=== PATIENT | female | born 1990 | race Caucasian/White ===

== ENCOUNTER 2023-05-06 08:01 | Outpatient (RCR) | payer BC, SELFPAY | END 2023-06-26 14:35 | disposition home or self-care (01) | PROVIDERS: PCP Surgery; Visit Provider Surgery | DX: O26.893 Other specified pregnancy related conditions, third trimester (principal); R10.2 Pelvic and perineal pain; R53.1 Weakness; M54.50 Low back pain, unspecified; Z51.89 Encounter for other specified aftercare | CPT/HCPCS: 97110; 97162 ==

== ENCOUNTER 2023-06-08 16:19 | Outpatient (CLI) | payer BC, SELFPAY ==
[2023-06-08 16:23] VITALS: PULSE 110; O2SAT 100
[2023-06-08 16:28] VITALS: PULSE 100; O2SAT 98
[2023-06-08 16:30] VITALS: BP 128/73; PULSE 106
[2023-06-08 17:02] LABS: Amnisure Rom* Negative
--- NOTE | 2023-06-08 19:36 | PC.OBNST ---
NST Note NST Note Start: 06/08/23 16:25 Freq: ONCE Status: Active Protocol: Document 06/08/23 17:10 Myrna (Rec: 06/08/23 19:36 [email or web address] [id number]) NST Note 3 Para (# of births) 2 EDC 06/21/23 Gestational Age In Weeks & Days 38 Weeks & 1 Days Patient Presented with Complaint(s) of Decreased movement Reactive Yes Appropriate for Gestational Age Yes RN Agueda Jones RN Date 06/08/23 Reactive Yes Appropriate for Gestational Age Yes JORGE Tavarez RN Date 06/08/23 OB NST charge Yes Complete NST Note via Write Note Yes The provider's electronic signature indicates the NST is reactive/appropriate for gestational age. *Note to provider: If an addendum is required, open the patient's chart and click on the note under the Nurse/Allied Health tab.
== END 2023-06-08 17:20 | disposition home or self-care (01) ==
LOC: OB OUT 16:20 → OB 16:20
PROVIDERS: PCP Surgery; Visit Provider Family Medicine
DX: O36.8130 Decreased fetal movements, third trimester, not applicable or unspecified (principal); Z3A.38 38 weeks gestation of pregnancy
CPT/HCPCS: 59025; 84112; 99213

== ENCOUNTER 2023-06-17 07:05 | Inpatient (IN) | payer BC, SELFPAY ==
[2023-06-17] VITALS (8 sets, daily range): BP systolic 99–125; BP diastolic 56–77; PULSE 77–90; RESP 16–18; TEMP 36.8–37; O2SAT 97–98; BMI 32.5
--- NOTE | 2023-06-17 07:21 | PM.OBHPLI ---
OB - H&P: HPI Labor/Induction History of Present Illness Date Seen: 06/17/23 Chief Complaint: The patient is a 32 year old 3 para 2 at 39.3 weeks gestation by 1st trimester ultrasound, who presents with desire for induction. Chief complaint: maternity Narrative: ANGIE PICKETT is a 32 year old female here for induction. has been uncomplicated. Dates are based on 1st trimester ultrasound. She has had 2 uncomplicated vaginal deliveries. She has been feeling a little less movement the last couple days but otherwise is not having any issues. Cramping but no regular contractions. No leaking fluid or bleeding. Otherwise feeling well. History of Present care: good care Ultrasounds: normal 1st trimester US and normal mid trimester US Medical complications: none Labs Blood type: O (+) positive Rubella: nonimmune (Equivocal) RPR/VDLR: nonreactive GBS status: negative HBsAG: negative OB - H&P: Exam Constitutional: Constitutional: no acute distress Detailed Labor and Delivery Exam: Patient Gravid: Yes Dilation (cm): 1 Effacement (%): 50 Cervix position: posterior Consistency: medium Cervical ripeness score: 3 Routine Neurological Exam: Present alert and oriented X3 OB - Problem Based A/P Additional Plan (1) Term : Status: Acute Plan Plan to induce with oral cytotec as desired by patient. Discussed risks/benefits of induction. Proceed per protocol. Anticipate .
[2023-06-17 07:51] LABS: Basophils Absolute Auto 0.03 K/uL (0.00-0.30); Basophils Percent Auto 0.5 % (0.0-3.0); Eosinophils Percent Auto 1.8 % (0.0-7.0); Hematocrit 31.5 % (33.0-51.0); Hemoglobin* 10.6 gm/dL (12.0-16.0); Immature Granulocytes Abs Auto 0.01 K/uL (0.00-0.30); Immature Granulocytes Pct Auto 0.2 %; Mean Corpuscular HGB Conc 34 gm/dL (32-36); Mean Corpuscular Hemoglobin 29 pg (26-34); Mean Corpuscular Volume 85 fL (80-100); Monocytes Percent Auto 10.3 % (0.0-11.0); Neutrophils Absolute Auto 3.34 K/uL (1.7-7.0); Neutrophils Percent Auto 60.2 % (42.0-72.0); Platelet Count* 248 K/uL (140-440); RDW Coefficient of Variation % 12.6 % (11.5-15.5); Red Blood Count 3.71 m/uL (4.00-5.20); White Blood Count* 5.55 K/uL (4.50-11.00)
[2023-06-17 08:01] LABS: Slide Review Reflex No
[2023-06-17] MEDS: miSOPROStoL 25 MCG/0.25 TABLET PO ×5 (08:27→18:46)
--- NOTE | 2023-06-17 22:15 | P.OBPN_ITS ---
Subjective Date Seen: 06/17/23 Narrative: She has gotten 5 doses of cytotec and is not really feeling uncomfortable with contractions. 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 Discussed options with patient. Since induction is elective, can stop and go home. She would like to do this. Wii reevaluate in clinic tomorrow. Return if signs of labor.
== END 2023-06-17 21:05 | disposition home or self-care (01) | DRG 566 ==
PROVIDERS: Admitting Provider Surgery; PCP Surgery; Visit Provider Surgery
DX: O61.0 Failed medical induction of labor (principal); Z3A.39 39 weeks gestation of pregnancy
CPT/HCPCS: 36415; 59200; 85025; 86850; 86900; 86901; A9270

== ENCOUNTER 2023-06-24 17:06 | Inpatient (IN) | payer BC, SELFPAY ==
[2023-06-24 17:09] VITALS: PULSE 102; O2SAT 96
[2023-06-24 17:14] VITALS: RESP 16; TEMP 37.1
[2023-06-24 17:24] VITALS: BMI 33.0
[2023-06-24 17:27] VITALS: BP 119/84; PULSE 92
--- NOTE | 2023-06-24 18:37 | PM.OBHPLI ---
OB - H&P: HPI Labor/Induction History of Present Illness Date Seen: 06/24/23 Chief complaint: Maternity Narrative: Jerrica Neil is a 32 year old 3 para 2 at 40w3d weeks gestation who presents for elective IOL. has been uncomplicated. Elective induction was attempted on 06/17 but no progress was made after 5 doses of oral Cytotec so she went home. Since then, she has had intermittent contractions, but nothing painful or consistent. No vaginal bleeding or LOF. Baby has been active. Denies headache, dizziness, chest pain, SOB, RUQ pain, or vision changes. Meds Home Medications and Allergies Home Medications Medication Instructions Recorded Confirmed Type docosahexaenoic acid PO DAILY 06/24/23 History ferrous sulfate 325 mg (65 mg 325 mg PO DAILY 06/24/23 06/24/23 History iron) tablet (FeroSul) Allergies Allergy/AdvReac Type Severity Reaction Status Date / Time kiwi Allergy Severe Verified 06/24/23 17:25 Penicillins Allergy Unknown rash Verified 06/24/23 17:25 OB - H&P: Exam Physical Exam: Vital signs: Temp Pulse Resp BP Pulse Ox 98.8 F 92 16 119/84 96 06/24/23 17:14 06/24/23 17:27 06/24/23 17:14 06/24/23 17:27 06/24/23 17:09 Constitutional: Constitutional: no acute distress Routine HEENT Exam: Head: Present atraumatic Routine Respiratory Exam: Respiratory: Present CTA bilaterally Routine Cardiovascular Exam: Cardiovascular: RRR Detailed Labor and Delivery Exam: Patient Gravid: Yes Dilation (cm): 2 Effacement (%): 50 Cervix position: posterior Consistency: medium Fetus (Single): Station: -3 Amniotic Membrane Status: intact Heart Rate Baseline: 150 Monitor Accelerations: Present Monitor Decelerations: None Brazer Resistance Variability: Moderate (6-25) OB - Problem Based A/P Additional Plan (1) Term : Status: Acute Plan at 40w3d here for elective IOL. DE Spirits catheter placed at 1830 with 60 cc in each balloon and patient tolerated this well. - routine intrapartum admission orders - plan pitocin per protocol - Morphine & vistaril PRN - anticipate Delivery/Labor/Induction Plan Plan: induction Induction method: Intracervical balloon catheter
[2023-06-24 19:33] VITALS: BP 123/77; PULSE 98; TEMP 37
[2023-06-24 20:35] VITALS: PULSE 97; O2SAT 97
[2023-06-24 23:14] VITALS: PULSE 94; O2SAT 98
[2023-06-25] VITALS (16 sets, daily range): BP systolic 100–141; BP diastolic 56–88; PULSE 72–95; RESP 16–18; TEMP 36.7–37.1; O2SAT 97–98
[2023-06-25] MEDS: miSOPROStoL 25 MCG/0.25 TABLET VAGINAL ×3 (00:59→04:17)
--- NOTE | 2023-06-25 07:13 | P.OBPN_ITS ---
Subjective Date Seen: 06/25/23 Narrative: Here for IOL. 40 10/26 today. Failed oral cytotec induction last week. Cook catheter placed last night and subsequently 2 doses of vaginal cytotec. Cervix has made some change. Starting to feel some contractions. 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 Now is starting to get favorable. Burris score of 7. Plan to transition to pitocin and continue induction. Not in active labor yet but anticipate this soon. Plan to progress toward vaginal delivery.
[2023-06-25 07:48] LABS: Basophils Absolute Auto 0.03 K/uL (0.00-0.30); Basophils Percent Auto 0.4 % (0.0-3.0); Eosinophils Percent Auto 1.3 % (0.0-7.0); Hematocrit 36.3 % (33.0-51.0); Immature Granulocytes Abs Auto 0.01 K/uL (0.00-0.30); Immature Granulocytes Pct Auto 0.1 %; Lymphocytes Absolute Auto 1.71 K/uL (0.90-2.90); Lymphocytes Percent Auto 21.8 % (20-44); Mean Corpuscular HGB Conc 33 gm/dL (32-36); Mean Corpuscular Hemoglobin 28 pg (26-34); Mean Corpuscular Volume 85 fL (80-100); Monocytes Percent Auto 9.8 % (0.0-11.0); Neutrophils Absolute Auto 5.22 K/uL (1.7-7.0); Neutrophils Percent Auto 66.6 % (42.0-72.0); Platelet Count* 269 K/uL (140-440); RDW Coefficient of Variation % 12.8 % (11.5-15.5); Red Blood Count 4.25 m/uL (4.00-5.20); White Blood Count* 7.84 K/uL (4.50-11.00)
[2023-06-25 07:53] LABS: Slide Review Reflex No
[2023-06-25] MEDS: LACTATED RINGERS 1000 ML 1,000 ML 125 ML IV (08:07)
[2023-06-25] MEDS: OXYTOCIN 30 unit/500 ML in NS 30 UNIT/500 ML BAG IVPB (08:07)
--- NOTE | 2023-06-25 11:13 | W.PM.VAGD1_ITS ---
Procedure Procedure Done: [facility] Procedure Details: 1st stage of labor: Patient admitted for elective induction. Cook catheter last night followed by 2 doses of cytotec, then started pitocin this morning. Patient was 2.5 cm after the cook fell out. Changed to 3.5 cm with 2 doses of cytotec. Pitocin was started and increased to 2 units per protocol. There were 2 late decelerations noted as patient progressed and the pitocin was reduced and then stopped. Tracing improved back to category 1 at that time. She was found to be 7.5 cm as she felt more uncomfortable. I rechecked her 15 minutes later at 10:15 as she was feeling more pressure. Cervix was unchanged but there was a bulging bag so AROM was performed with clear fluid returning. She felt a lot more pressure 3 minutes later and was found to be complete. 2nd stage of labor: Patient began pushing at 10:19. She delivered a liveborn female via the OA position at 10:20. No nuchal cord noted. Baby did cry just after delivery. Pitocin started just after delivery. Cord was clamped x2 and cut after 2 minutes. 3rd stage of labor: Placenta delivered spontaneously at 10:27. It was found to be intact with a 3 vessel cord. Bleeding was minimal, 100 cc EBL. No lacerations were noted. Baby and mom set up for routine cares. Intrapartal Events: Labor Induction Delivery augmentation: rupture of membranes and pitocin Delivery monitor: external FHT Route of delivery: Laceration description: None Anesthesia type: Nitrous Disposition: floor Infant Gender: Female presentation: vertex Placental Delivery Description: Spontaneous Cord Description: 3 Vessels
[2023-06-25] MEDS: ACETAMINOPHEN 500 MG TABLET 1000 MG PO ×2 (11:30→22:03)
[2023-06-25] MEDS: IBUPROFEN 600 MG TABLET PO ×2 (13:06→19:37)
[2023-06-25] MEDS: LANOLIN CREAM 1 APPLIC TOPICAL (20:02)
[2023-06-26] VITALS: BP 99/64; PULSE 76; RESP 16; TEMP 36.6; O2SAT 97
[2023-06-26] MEDS: IBUPROFEN 600 MG TABLET PO ×2 (01:19→07:49)
[2023-06-26] MEDS: ACETAMINOPHEN 500 MG TABLET 1000 MG PO ×2 (03:56→09:54)
[2023-06-26 03:58] VITALS: BP 118/77; PULSE 97; RESP 16; TEMP 36.8; O2SAT 97
[2023-06-26 07:44] VITALS: BP 110/70; RESP 16; TEMP 36.8
--- NOTE | 2023-06-26 07:46 | P.DS_ITS ---
DS: Providers Provider Date Seen: 06/26/23 Date of admission: 06/24/23 17:06 Primary care physician: Pato Collado MD Admitting Clinician: Lea Lewis DO Attending Physician on discharge: Lea Lewis DO Date of Discharge: 06/26/23 DS: Diagnosis Discharge Diagnosis (1) , delivered: Status: Acute Exam Narrative: Exam Narrative: Gen: No acute distress CV: Regular rate and rhythm, normal S1,S2, no murmurs Resp: Normal rate and effort, clear to auscultation bilaterally Abd: Soft, uterus firm and nontender at umbilicus Ext: Warm, dry, 2+ pedal pulses, no edema bilaterally. Calves non-tender to palpation. Const: Vital Signs, click to edit/add: Vital Signs - 24 hr 06/25/23 10:26 06/25/23 10:28 06/25/23 10:28 Temperature Pulse Rate 95 83 Pulse Rate [Right Blood Pressure Cuf f] 83 Respiratory Rate Blood Pressure 128/73 129/71 Blood Pressure [Ri ght Arm] 129/71 Pulse Oximetry Oxygen Delivery Me thod 06/25/23 10:43 06/25/23 10:43 06/25/23 10:57 Temperature Pulse Rate 81 Pulse Rate [Right Blood Pressure Cuf f] 81 85 Respiratory Rate Blood Pressure 122/77 Blood Pressure [Ri ght Arm] 122/77 124/75 Pulse Oximetry Oxygen Delivery Me thod 06/25/23 10:58 06/25/23 11:13 06/25/23 11:13 Temperature Pulse Rate 85 78 Pulse Rate [Right Blood Pressure Cuf f] 78 Respiratory Rate Blood Pressure 124/75 120/76 Blood Pressure [Ri ght Arm] 120/76 Pulse Oximetry Oxygen Delivery Me thod 06/25/23 11:28 06/25/23 11:28 06/25/23 11:28 Temperature 98.7 F Pulse Rate 83 Pulse Rate [Right Blood Pressure Cuf f] 83 Respiratory Rate 16 Blood Pressure 141/87 H Blood Pressure [Ri ght Arm] 141/87 H Pulse Oximetry Oxygen Delivery Me thod 06/25/23 11:43 06/25/23 11:43 06/25/23 11:57 Temperature Pulse Rate 84 Pulse Rate [Right Blood Pressure Cuf f] 84 87 Respiratory Rate Blood Pressure 122/74 Blood Pressure [Ri ght Arm] 122/74 105/73 Pulse Oximetry Oxygen Delivery Me thod 06/25/23 11:58 06/25/23 12:13 06/25/23 12:13 Temperature Pulse Rate 87 88 Pulse Rate [Right Blood Pressure Cuf f] 88 Respiratory Rate Blood Pressure 105/73 122/76 Blood Pressure [Ri ght Arm] 122/76 Pulse Oximetry Oxygen Delivery Me thod 06/25/23 16:03 06/25/23 19:33 06/26/23 00:00 Temperature 98.2 F 98.2 F 97.9 F Pulse Rate Pulse Rate [Right Blood Pressure Cuf f] 92 72 76 Respiratory Rate 16 16 16 Blood Pressure Blood Pressure [Ri ght Arm] 121/82 137/88 99/64 Pulse Oximetry 97 97 97 Oxygen Delivery Me thod Room Air Room Air Room Air 06/26/23 03:58 Temperature 98.3 F Pulse Rate Pulse Rate [Right Blood Pressure Cuf f] 97 Respiratory Rate 16 Blood Pressure Blood Pressure [Ri ght Arm] 118/77 Pulse Oximetry 97 Oxygen Delivery Me thod Room Air OB - DS: Summary Hospital Course Hospital Course: The patient is a 32 year old G 3 P 3 at 40.4 weeks gestation that was admitted to the Center on 06/24/23 for IOL for postdates. She had an uncomplicated vaginal delivery without lacerations. She delivered a viable female . She is breast feeding. the patient has done well. Peripartum Data Infant delivery method: Vaginal (induced) Laceration description: None complications: none [place] Infant Gender: Female Discharge Plan: Home Status at Discharge Functional status at discharge: independent ambulation Overall status at discharge: patient is progressing back to baseline Time Spent with Patient Time attestation: Total time spent providing and/or coordinating discharge services: Discharge Plan Discharge Disposition: Home, Self-Care Date of Admission: 06/24/23 17:06 Primary Care Provider: Pato Collado Condition: Stable Anticipated Discharge Date/Time: 06/26/23 13:00 Discharge Medications: Continued docosahexaenoic acid [ DHA] 1 cap PO DAILY ferrous sulfate [FeroSul] 325 mg (65 mg iron) tablet 325 mg PO DAILY Discharge Orders: Discharge Order (Routine); Ordered 06/26/23 Ordered By: Carmen E Boston Patient Education: OB Vaginal/Breast Feeding Additional Instructions: - Pelvic rest for 6 weeks (no intercourse, tampons or douching), or until one week after vaginal bleeding stops. - Daily activities for the first week should be limited to taking care of patient and her baby, and only as tolerated. - Call MD if fever > 100.4 degrees, bleeding more than 1 pad / hour, foul- smelling discharge, passage of golf-ball sized blood clots, or worsening of pain not controlled by medications. - Watch for signs of post- depression. Activity Level: No Restrictions and Activity as Tolerated Discharge Diet: Regular Follow Up Appointments: Pato Collado MD [Primary Care Provider] - Forms: [employer] Info Instructions
[2023-06-26] MEDS: MEASLES,MUMPS,RUBELLA VACC/PF 1 DOSE INJ 1 EACH SUBCUT (09:05)
[2023-06-26 13:06] VITALS: RESP 16; TEMP 37.4
== END 2023-06-26 13:18 | disposition home or self-care (01) | DRG 560 ==
PROVIDERS: Admitting Provider Family Medicine; PCP Surgery; Visit Provider Family Medicine
DX: O48.0 Post-term pregnancy (principal); Z3A.40 40 weeks gestation of pregnancy; O76 Abnormality in fetal heart rate and rhythm complicating labor and delivery; Z37.0 Single live birth
CPT/HCPCS: 36415; 59200; 76815; 85025; 86850; 86900; 86901; A9270; C1726; J2371; J7120

== ENCOUNTER 2025-03-25 09:45 | Outpatient (RCR) | payer BC, SELFPAY | END 2025-06-11 11:09 | disposition home or self-care (01) | PROVIDERS: PCP Surgery; Visit Provider Surgery | DX: O26.893 Other specified pregnancy related conditions, third trimester (principal); R10.20 Pelvic and perineal pain unspecified side; K59.00 Constipation, unspecified; N39.3 Stress incontinence (female) (male); Z51.89 Encounter for other specified aftercare | CPT/HCPCS: 97110; 97112; 97140; 97162; 97535 ==

== ENCOUNTER 2025-04-14 19:20 | Inpatient (IN) | payer BC, SELFPAY ==
[2025-04-14 19:31] VITALS: BMI 35.2
[2025-04-14 20:09] VITALS: BP 131/76; PULSE 108; PULSE 111; RESP 16; TEMP 36.9; O2SAT 97
[2025-04-14 23:52] VITALS: BP 132/83; PULSE 100; TEMP 36.8
[2025-04-15] VITALS (37 sets, daily range): BP systolic 101–146; BP diastolic 53–79; PULSE 75–113; RESP 16–20; TEMP 36.6–36.9; O2SAT 97–100
--- NOTE | 2025-04-15 08:02 | PM.OBHPLI ---
OB - H&P: HPI Labor/Induction History of Present Illness Date Seen: 04/15/25 Chief Complaint: The patient is a 34 year old 4 para 3 at 40 weeks gestation by LMP and 1st trimester ultrasound, who presents for induction of labor. Chief complaint: Elective IOL Narrative: Jerrica Neil is a 34 year old female at 40 weeks gestation who present for IOL. She has had an uncomplicated to date with the exception of mild iron deficiency anemia and pelvic pain that responded well to physical therapy. History of Present Dating criteria: based on LMP care: good care Ultrasounds: normal 1st trimester US and normal mid trimester US Medical complications: none Labs Blood type: O (+) positive Rubella: immune RPR/VDLR: nonreactive GBS status: negative HBsAG: negative Review of Systems Status of ROS: Reports: 6 or more systems reviewed and unremarkable except as noted in History and below Meds Home Medications and Allergies Home Medications ?Medication ?Instructions ?Recorded ?Confirmed ?Type docosahexaenoic acid 1 cap PO DAILY 06/24/23 04/14/25 History ferrous sulfate 325 mg (65 mg 325 mg PO DAILY 06/24/23 04/14/25 History iron) tablet (FeroSul) cholecalciferol (vitamin D3) .ROUTE 04/14/25 History Allergies Allergy/AdvReac Type Severity Reaction Status Date / Time kiwi Allergy Severe Verified 04/14/25 19:43 Penicillins Allergy Unknown rash Verified 04/14/25 19:43 OB - H&P: Exam Physical Exam: Vital signs: Temp Pulse Resp BP Pulse Ox 97.9 F 83 16 109/67 97 04/15/25 06:07 04/15/25 07:19 04/14/25 20:09 04/15/25 07:19 04/15/25 03:02 Constitutional: Constitutional: no acute distress Routine HEENT Exam: Eye: Present normal appearance ENT: Present mucous membranes moist Detailed Labor and Delivery Exam: Patient Gravid: yes Dilation (cm): 2 Effacement (%): 60 Cervix position: mid Consistency: medium Tachysystole: No Contraction intensity: Mild Comments: Cervical Exam per RN. Bedside US shows cephalic position. EFW [id number]. 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 Starting to get a little more uncomfortable. Plan to switch to pitocin when balderas score 6-8. Continue expectant management per protocol. )
[2025-04-15 11:14] LABS: Hematocrit* 31.5 % (33.0-51.0); Hemoglobin* 10.3 gm/dL (12.0-16.0); Immature Granulocytes Pct Auto 0.2 %; Mean Corpuscular HGB Conc 33 gm/dL (32-36); Mean Corpuscular Hemoglobin 27 pg (26-34); Mean Corpuscular Volume 83 fL (80-100); RDW Coefficient of Variation % 13.0 % (11.5-15.5); Red Blood Count* 3.79 m/uL (4.00-5.20); White Blood Count* 11.26 K/uL (4.50-11.00)
[2025-04-15 11:16] LABS: Immature Granulocytes Abs Auto 0.00 K/uL (0.00-0.30); Lymphocytes Absolute Auto 1.50 K/uL (0.90-2.90); Slide Review Reflex No
[2025-04-15] MEDS: LACTATED RINGERS 1000 ML 1,000 ML 125 ML IV (11:19)
[2025-04-15] MEDS: OXYTOCIN 30 unit/500 ML in NS 30 UNIT/500 ML BAG IVPB (11:19)
--- NOTE | 2025-04-15 14:26 | PM.OBPNL ---
Subjective Time Seen by Provider: 14:10 Date Seen: 04/15/25 Narrative: Getting a little more uncomfortable and feeling some pressure. Objective Vital Signs: Last Vital Signs Temp 98.4 F 04/15/25 13:57 Pulse 107 H 04/15/25 13:57 Resp 18 04/15/25 13:57 BP 132/74 04/15/25 13:57 Pulse Ox 97 04/15/25 03:02 Pelvic Exam Dilation (cm): 4 Effacement (%): 70 Station: -2 Comments: Bulging bag tight at cervix Contractions Monitor mode: External Contraction Frequency: q2-3 Contraction pattern: Regular Contraction intensity: Moderate Pitocin Rate (mU/min): 2 Assessment Assessment: active labor Station: -2 Amniotic Membrane Status: AROM (Clear fluid) Status: Category l Heart Rate Baseline: 130 [facility] Variability: Moderate (6-25) Monitor Accelerations: Present Monitor Decelerations: None Tracing Comments: Category 1 tracing Labor Progress: Progressing Plan Plan: Continue nitrous oxide for pain control. No epidural desired at this time. AROM performed with clear fluid. Discussed risks/benefits of AROM before proceeding. Tracing category 1. Anticipate .
--- NOTE | 2025-04-15 16:51 | PM.OBPNL ---
Subjective Time Seen by Provider: 16:00 Date Seen: 04/15/25 Narrative: Getting more uncomfortable. Pit still only at 2 because of frequent contractions. Objective Vital Signs: Last Vital Signs Temp 98 F 04/15/25 15:55 Pulse 91 04/15/25 15:55 Resp 20 04/15/25 15:55 BP 106/58 L 04/15/25 15:55 Pulse Ox 100 04/15/25 16:48 Pelvic Exam Dilation (cm): 4 Effacement (%): 70 Station: -2 Contractions Monitor mode: External Contraction pattern: Regular Contraction intensity: Moderate Pitocin Rate (mU/min): 2 Assessment Station: -2 Amniotic Membrane Status: AROM (Clear fluid) Status: Category l Heart Rate Baseline: 130 Monitor Accelerations: Present Monitor Decelerations: None Plan Plan: Still not in active labor despite being very uncomfortable. Will get epidural now. Plan to start increasing pitocin per protocol once she has the epidural. Anticipate once she gets into active labor.
[2025-04-15] MEDS: ROPIVACAINE 0.2% 100 ml 100 ML 12 MG EPIDURAL (17:00)
[2025-04-15] MEDS: LIDOCAINE 2% (PF) 5 ML VIAL EPIDURAL (17:00)
[2025-04-15] MEDS: ONDANSETRON 2 MG/ML inj 4 MG IV (17:11)
--- NOTE | 2025-04-15 17:12 | PM.ANBPRC ---
PFSH PFSH Social History What is your current living situation?: I presently have a place to live Problems where you live: no known problems In the past 12 months, utilities in danger of being shut off: no In past 12 months, lack of transportation kept you from medical appts, meetings, work, or getting things needed for daily living: no In the past 12 mos, have been you worried that your food would run out before you had money to buy more?: never true In the past 12 mos, the food you bought just didn't last and you didn't have money to buy more?: never true Smoking Status: Never smoker How often does anyone, including family, friends and others, physically hurt you: never How often does anyone, including family, friends and others, insult or talk down to you: never How often does anyone, including family, friends and others, threaten you with harm: never How often does anyone, including family, friends and others, scream or curse at you: never Meds Home Medications and Allergies Home Medications ?Medication ?Instructions ?Recorded ?Confirmed ?Type docosahexaenoic acid 1 cap PO DAILY 06/24/23 04/14/25 History ferrous sulfate 325 mg (65 mg 325 mg PO DAILY 06/24/23 04/14/25 History iron) tablet (FeroSul) cholecalciferol (vitamin D3) .ROUTE 04/14/25 History Allergies Allergy/AdvReac Type Severity Reaction Status Date / Time kiwi Allergy Severe Verified 04/14/25 19:43 Penicillins Allergy Unknown rash Verified 04/14/25 19:43 Results Labs Labs: Laboratory Results - last 24 hr 04/15/25 11:07 WBC 11.26 H RBC 3.79 L Hgb 10.3 L Hct 31.5 L MCV 83 MCH 27 MCHC 33 RDW Coeff of Natali 13.0 Plt Count 238 Neut % (Auto) 75.8 H Lymph % (Auto) 13.5 L [place] % (Auto) 9.3 Eos % (Auto) 0.9 Baso % (Auto) 0.3 Neut # (Auto) 8.50 H Lymph # (Auto) 1.50 [place] # (Auto) 1.00 H Eos # (Auto) 0.10 Baso # (Auto) 0.00 Abs Immat Gran (auto) 0.00 Imm/Tot Granulo (auto) 0.2 Blood Type O Positive Antibody Screen NEGATIVE Vital Signs Vital Signs: Last Vital Signs Temp 98 F 04/15/25 15:55 Pulse 98 04/15/25 17:12 Resp 20 04/15/25 15:55 BP 111/62 04/15/25 17:12 Pulse Ox 99 04/15/25 17:08 Weight: 95.98 kg Height: 165.1 cm Anesthesia Procedures Epidural Insertion Patient Location: OB Start Time: 16:30 Stop Time: 17:30 Start Date: 04/15/25 Stop Date: 04/15/25 Reason for Block: primary anesthetic Patient Position: sitting Performed By: Gregorio June Preanesthetic Checklist: IV checked, risks and benefits discussed, surgical consent, monitors and equipment checked, pre-op evaluation, timeout performed and anesthesia consent Prep: chlorhexidine gluconate Monitoring: blood pressure monitoring, continuous pulse oximetry and heart rate Approach: midline Vertebral Space: lumbar (1-5) Epidural Technique: LENA saline Needle Type: Tuohy needle Injection Technique: continuous catheter Needle gauge: 17 Needle Length (cm): 10 cm Needle Insertion Depth (cm): 6 Catheter Gauge: 19 Catheter Type: multi-orifice Catheter at skin depth (cm): 12 Test Dose Result: negative and lidocaine 1.5% with epinephrine 1 to 200,000
--- NOTE | 2025-04-15 18:08 | W.PM.VAGDEL1 ---
Procedure Delivery date: 04/15/25 Procedure Done: [facility] Intrapartal Events: Labor Induction Delivery augmentation: rupture of membranes and pitocin Delivery monitor: external FHT Route of delivery: Laceration description: None Anesthesia type: Epidural Disposition: floor Narrative: 1st stage: Jerrica is a 34 year old G4 now P4 who presented for induction at 39 6/7. was uncomplicated. Dates confirmed with LMP and 1st trimester ultrasound. Breech position until 36 weeks when baby spontaneously turned. testing all within normal limits except mild anemia. Induction started with cytotec. 4 doses given. After 42th dose, balderas score was 7, so we elected to start pitocin. She contracted every 2 minutes with 2 units of pitocin. She was getting progressively more uncomfortable. AROM performed with clear fluid at 4 cm. Unchanged 2 hours later, patient elected to get an epidural. After epidural was placed, she was found to be 7 cm and then complete 20 mins later. FHT category 1 through first stage of labor except occasional decels during and after epidural. 2nd stage: She pushed very effectively and delivered a liveborn male via the OA position with nuchal cord x2, once around neck and once around body. No lacerations. Apgars 8/9. IV pitocin started after delivery of shoulder. 3rd stage: Placenta delivered spontaneously and was complete. 3 vessel cord. No repair performed. Mom and baby set up for routine cares. [place] Infant Gender: Male presentation: vertex Placental Delivery Description: Spontaneous Cord Description: 3 Vessels
[2025-04-15] MEDS: ACETAMINOPHEN 500 MG TABLET 1000 MG PO (20:38)
[2025-04-15] MEDS: IBUPROFEN 600 MG TABLET PO (23:06)
[2025-04-16 03:00] VITALS: BP 112/76; PULSE 74; RESP 16; TEMP 36.6; O2SAT 98
[2025-04-16] MEDS: ACETAMINOPHEN 500 MG TABLET 1000 MG PO ×3 (03:02→18:17)
[2025-04-16 06:18] LABS: Hemoglobin* 10.5 gm/dL (12.0-16.0)
[2025-04-16] MEDS: IBUPROFEN 600 MG TABLET PO ×2 (06:45→14:48)
--- NOTE | 2025-04-16 07:42 | PM.OBPNVD1 ---
OB - PN:Subj Subjective Date Seen: 04/16/25 Narrative: Patient seen today on PP day []. Doing well. [] Pain under control with ibuprofen. Lochia decreasing. Ambulating. Tolerating diet. Normal urination. going well. Baby doing well. OB - PN: Obj Exam Physical Exam: Vital signs: Temp Pulse Resp BP Pulse Ox O2 Del Method 97.8 F 74 16 112/76 98 Room Air 04/16/25 03:00 04/16/25 03:00 04/16/25 03:00 04/16/25 03:00 04/16/25 03:00 04/16/25 03:00 Narrative: Gen: NAD CV: RRR, normal S1,S2, no murmurs Resp: normal rate and effort, clear to auscultation Abd: Soft, uterus firm and nontender at umbilicus Ext: Warm, dry, 2+ pedal pulses, no edema b/l. Calves non-tender to palpation. Mood: Appropriate OB - PN: Obj Data Labs Labs: Laboratory Results - last 24 hr 04/15/25 04/16/25 11:07 06:05 WBC 11.26 H RBC 3.79 L Hgb 10.3 L 10.5 L Hct 31.5 L MCV 83 MCH 27 MCHC 33 RDW Coeff of Natali 13.0 Plt Count 238 Neut % (Auto) 75.8 H Lymph % (Auto) 13.5 L [place] % (Auto) 9.3 Eos % (Auto) 0.9 Baso % (Auto) 0.3 Neut # (Auto) 8.50 H Lymph # (Auto) 1.50 Andrews # (Auto) 1.00 H Eos # (Auto) 0.10 Baso # (Auto) 0.00 Abs Immat Gran (auto) 0.00 Imm/Tot Granulo (auto) 0.2 Blood Type O Positive Antibody Screen NEGATIVE OB - PN: A/P Delivery Assessment and Plan (1) Term : Status: Acute Plan Comments: PPD# s/p uncomplicated , doing well. Plan: -- Continue current cares. -- Encourage ambulation. -- Take Vitamins while . -- Iron sulfate due to anemia (since Hgb < 10) -- Colace for constipation prophylaxis. -- RhoGAM for mother Rh neg and baby Rh pos. -- Give rubella immunization (since Rubella Antibody < 1.0). -- control discussed: . -- Advised that nothing per vagina for 6 weeks or until one week after bleeding stops. -- Symptoms of post depression discussed. -- Anticipate discharge to home . Follow up with @PCP@, in 6 weeks, or sooner if concerned.
[2025-04-16 08:00] VITALS: BP 117/81; PULSE 83; RESP 16; O2SAT 98
--- NOTE | 2025-04-16 10:30 | PM.ANPOST ---
Post Anesthesia Note Post Anesthesia Note Patient seen: Inpatient Respiratory Status: adequate Cardiovascular Status: adequate Mental Status: baseline Pain: adequate Temp: baseline Anesthetic awareness: N/A Complications: none Follow care: none
[2025-04-16 13:39] VITALS: BP 128/88; PULSE 83; RESP 16; O2SAT 98
--- NOTE | 2025-04-16 17:14 | P.DS_ITS ---
DS: Providers Provider Date Seen: 04/16/25 Date of admission: 04/14/25 19:20 Primary care physician: Pato Collado MD Admitting Clinician: Pato Collado MD Attending Physician on discharge: Pato Collado MD DS: Diagnosis Discharge Diagnosis (1) Vaginal delivery: Status: Acute Exam Narrative: Exam Narrative: Gen: No acute distress CV: Regular rate and rhythm, normal S1,S2, no murmurs Resp: Normal rate and effort, clear to auscultation bilaterally Abd: Soft, uterus firm and nontender at umbilicus Ext: Warm, dry, 2+ pedal pulses, no edema bilaterally. Calves non-tender to palpation. Const: Vital Signs, click to edit/add: Vital Signs - 24 hr 04/15/25 17:15 04/15/25 17:17 04/15/25 17:18 Temperature Pulse Rate 107 H 107 H Pulse Rate [Pulse Oximeter] Respiratory Rate Blood Pressure 122/74 146/64 H Blood Pressure [Ri ght Arm] Pulse Oximetry 97 Oxygen Delivery [facility] 04/15/25 17:20 04/15/25 17:21 04/15/25 17:23 Temperature Pulse Rate 100 104 H Pulse Rate [Pulse Oximeter] Respiratory Rate Blood Pressure 135/69 121/73 Blood Pressure [Ri ght Arm] Pulse Oximetry 100 Oxygen Delivery [facility] 04/15/25 17:26 04/15/25 17:28 04/15/25 17:45 Temperature Pulse Rate 107 H 107 H 111 H Pulse Rate [Pulse Oximeter] Respiratory Rate Blood Pressure 104/53 L 117/64 121/59 L Blood Pressure [Ri ght Arm] Pulse Oximetry 100 Oxygen Delivery [facility] 04/15/25 17:45 04/15/25 18:01 04/15/25 18:01 Temperature Pulse Rate 90 Pulse Rate [Pulse Oximeter] Respiratory Rate 20 20 Blood Pressure 117/73 Blood Pressure [Ri ght Arm] Pulse Oximetry [facility] 04/15/25 18:16 04/15/25 18:16 04/15/25 18:31 Temperature Pulse Rate 79 82 Pulse Rate [Pulse Oximeter] Respiratory Rate 20 Blood Pressure 112/69 119/70 Blood Pressure [Ri ght Arm] Pulse Oximetry [facility] 04/15/25 18:31 04/15/25 18:46 04/15/25 18:46 Temperature Pulse Rate 85 Pulse Rate [Pulse Oximeter] Respiratory Rate 18 18 Blood Pressure 114/68 Blood Pressure [Ri ght Arm] Pulse Oximetry Oxygen Delivery Me thod 04/15/25 19:01 04/15/25 19:01 04/15/25 19:15 Temperature Pulse Rate 82 Pulse Rate [Pulse Oximeter] Respiratory Rate 18 18 Blood Pressure 109/64 Blood Pressure [Ri ght Arm] Pulse Oximetry Oxygen Delivery Me thod 04/15/25 19:16 04/15/25 19:31 04/15/25 19:31 Temperature 98.2 F Pulse Rate 96 96 Pulse Rate [Pulse Oximeter] Respiratory Rate 16 Blood Pressure 116/71 118/78 Blood Pressure [Ri ght Arm] Pulse Oximetry Oxygen Delivery Me thod 04/15/25 23:08 04/16/25 03:00 04/16/25 08:00 Temperature 98.3 F 97.8 F Pulse Rate Pulse Rate [Pulse Oximeter] 75 74 83 Respiratory Rate 16 16 16 Blood Pressure Blood Pressure [Ri ght Arm] 117/79 112/76 117/81 Pulse Oximetry 98 98 98 Oxygen Delivery Me thod Room Air Room Air Room Air 04/16/25 13:39 Temperature Pulse Rate Pulse Rate [Pulse Oximeter] 83 Respiratory Rate 16 Blood Pressure Blood Pressure [Ri ght Arm] 128/88 Pulse Oximetry 98 Oxygen Delivery Me thod Room Air OB - DS: Summary Hospital Course Hospital Course: The patient is a 34 year old G 4 P 4 at 39.6w weeks gestation that was admitted to the Center on 04/14/25 for EIOL, delivered at 40w GA. She had an uncomplicated vaginal delivery. She delivered a viable male . She is breast feeding. the patient has done well. Breech position until 36 weeks when baby spontaneously turned. testing all within normal limits except mild anemia. Cramping was significant with . Bleeding minimal. . Gender: Male Status at Discharge Functional status at discharge: independent ambulation Overall status at discharge: patient is progressing back to baseline Time Spent with Patient Time attestation: Total time spent providing and/or coordinating discharge services: Discharge Plan Discharge Disposition: Home, Self-Care Date of Admission: 04/14/25 19:20 Primary Care Provider: Pato Collado Condition: Stable Anticipated Discharge Date/Time: 04/16/25 17:14 Discharge Medications: Continued docosahexaenoic acid [ DHA] 1 cap PO DAILY cholecalciferol (vitamin D3) .ROUTE Discontinued ferrous sulfate [FeroSul] 325 mg (65 mg iron) tablet 325 mg PO DAILY Discharge Orders: Discharge Order (Routine); Ordered 04/16/25 Ordered By: Carmen Boston Patient Education: OB Vaginal/Breast Feeding Activity Level: No Restrictions Discharge Diet: Regular Follow Up Appointments: Pato Collado MD [Primary Care Provider, Family Practice] Forms: Patient Belongings, [facility] Info Instructions DS:Data Additional Comments Additional comments: - Pelvic rest for 6 weeks (no intercourse, tampons or douching), or until one week after vaginal bleeding stops. - Daily activities for the first week should be limited to taking care of patient and her baby, and only as tolerated. - Call MD if fever > 100.4 degrees, bleeding more than 1 pad / hour, foul- smelling discharge, passage of golf-ball sized blood clots, or worsening of pain not controlled by medications.
== END 2025-04-16 18:33 | disposition home or self-care (01) | DRG 560 ==
PROVIDERS: Admitting Provider Surgery; PCP Surgery; Visit Provider Surgery
DX: O99.02 Anemia complicating childbirth (principal); D50.9 Iron deficiency anemia, unspecified; Z3A.40 40 weeks gestation of pregnancy; Z37.0 Single live birth
CPT/HCPCS: 01967; 36415; 59200; 76815; 85018; 85025; 86592; 86850; 86900; 86901; A9270; J2405; J2795; J3010; J7120